=== PATIENT | male | born 2005 | race Caucasian/White ===

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

== ENCOUNTER 2024-03-11 16:48 | Outpatient (CLI) | payer MEDICAID, SELFPAY ==
--- NOTE | 2024-03-11 16:59 | XR_ITS ---
PROCEDURE INFORMATION: Exam: XR Cervical Spine Exam date and time: 03/11/2024 5:01 PM Age: 19 years old Clinical indication: Neck pain and other: Numbness/tingling in arms, hands TECHNIQUE: Imaging protocol: Radiologic exam of the cervical spine. Views: 4 or 5 views. COMPARISON: CR XR CHEST 2V 08/18/2023 4:27 PM FINDINGS: Bones/joints: Vertebral alignment is within normal limits without evidence of subluxation or spondylolisthesis. No evidence of vertebral body compression fractures, lytic or sclerotic lesions. Intervertebral disc spaces are preserved and within normal limits for patient's age. Facet joints are in normal configuration without signs of arthrosis or effusion. Soft tissues: Paravertebral soft tissues appear unremarkable. Other findings: Prevertebral and paravertebral soft tissues appear unremarkable. IMPRESSION: No radiographic evidence for acute spinal abnormality.
== END 2024-03-11 23:59 | disposition home or self-care (01) ==
LOC: RAD 16:51
PROVIDERS: PCP Family Medicine; Visit Provider Family Medicine
DX: R20.2 Paresthesia of skin (principal); M54.2 Cervicalgia
CPT/HCPCS: 72050